=== PATIENT | female | born 1995 | race Hispanic/Latino ===

== ENCOUNTER 2017-07-31 18:12 | Emergency (ER) | payer BC ==
--- NOTE | 2017-07-31 19:10 | ER ---
Nurse's Notes [facility] Name: Roselia Vega Age: 21 yrs Sex: Female : 1995 Arrival Date: 07/31/2017 Time: 18:16 Bed 14 Private MD: Diagnosis: Superficial injury of head;Concussion Presentation: 07/31 18:25 Presenting complaint: Patient states: i had a concussion 2 weeks ago, a 2 L coke bottle tw2 fell on my head form the top shelf, and they told me to come back if had any symptoms, i dont have headaches, but it just throbs on the right side. Transition of care: patient was not received from another setting of care. Onset of symptoms was July 31, 2017. Care prior to arrival: None. 18:25 Acuity: RIANA 3 tw2 18:25 Method Of Arrival: Ambulatory tw2 Triage Assessment: 19:28 Pain: Also complains of nausea. 19:29 Headache History: Denies prior headaches. 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 - Social history:: Smoking status: Patient/guardian denies using tobacco. Screenin:32 Abuse screen: Denies threats or abuse. Denies injuries from another. Nutritional aj1 screening: No deficits noted. Tuberculosis screening: No symptoms or risk factors identified. 19:29 Fall Risk None identified. Assessment: 18:32 General: Appears in no apparent distress. comfortable, Behavior is calm, cooperative, aj1 appropriate for age. Pain: Complains of pain in scalp Pain radiates to neck Pain currently is 7 out of 10 on a pain scale. Quality of pain is described as throbbing, Pain began 2 weeks ago. Neuro: Level of Consciousness is awake, alert, obeys commands, Oriented to person, place, time, situation, Maintenance Scheduler are equal bilaterally Moves all extremities. Full function Gait is steady, Speech is normal, Facial symmetry appears normal, Pupils are PERRLA, Intact Reports headache for the past 2 weeks, states she is taking Tylenol #3, but it isn't helping her pain. Patient has not followed up with her PCP. Cardiovascular: Patient's skin is warm and dry. Respiratory: Airway is patent Respiratory effort is even, unlabored, Respiratory pattern is regular, symmetrical. GI: No signs and/or symptoms were reported involving the gastrointestinal system. : No signs and/or symptoms were reported regarding the genitourinary system. EENT: No signs and/or symptoms were reported regarding the EENT system. Derm: No signs and/or symptoms reported regarding the dermatologic system. Skin is pink, warm \T\ dry. normal. Musculoskeletal: No signs and/or symptoms reported regarding the musculoskeletal system. Circulation, motion, and sensation intact. 19:28 Reassessment: Patient appears in no apparent distress at this time. Patient and/or wh family updated on plan of care and expected duration. Pain level reassessed. Patient is alert, oriented x 3, equal unlabored respirations, skin warm/dry/pink. Patient denies pain at this time. Vital Signs: 18:27 BP 133 / 82; Pulse 85; Resp 17; Temp 98.6(O); Pulse Ox 99% on R/A; Weight 97.52 kg (R); tw2 Height 5 ft. 2 in. (157.48 cm); Pain 8/10; 18:27 Body Mass Index 39.32 (97.52 kg, 157.48 cm) tw2 Rahel Coma Score: 21:27 Eye Response: spontaneous(4). Verbal Response: oriented(5). Motor Response: obeys snw commands(6). Total: 15. ED Course: 18:16 Patient arrived in ED. as 18:17 Triage completed. tw2 18:17 Arm band placed on. tw2 18:32 Susana Bettencourt, RN is Primary Nurse. aj1 18:32 Kareen Corea FNP-C is PHCP. snw 18:32 Chema Wu MD is Attending Physician. snw 18:32 Patient has correct armband on for positive identification. Bed in low position. Call aj1 light in reach. Side rails up X 1. 18:32 No provider procedures requiring assistance completed. aj1 19:30 Patient did not have IV access during this emergency room visit. Administered Medications: No medications were administered Outcome: 19:09 Discharge ordered by . snw 19:29 Discharged to home ambulatory, with friend. 19:29 Condition: good 19:29 Discharge instructions given to patient, friend, Instructed on discharge instructions, follow up and referral plans. medication usage, POC Concussion Demonstrated understanding of instructions, follow-up care, medications, POC Prescriptions given X 1. 19:30 Patient left the ED. Signatures: Susana Bettencourt RN RN aj1 Kareen Corea, ANODIZING LINE OPERATOR-C ANODIZING LINE OPERATOR-Csnw Bety Renee as Addie Feliz RN RN tw2 Betty Ruiz Corrections: (The following items were deleted from the chart) 18:20 18:17 Presenting complaint: Patient states: starting yesterday my throat was really tw2 sore and today my nose is really stuffy tw2 18:20 18:17 Transition of care: patient was not received from another setting of care. tw2 18:20 18:17 Onset of symptoms was July 31, 2017 tw2 18:20 18:17 Care prior to arrival: None. 2 18:20 18:17 Method Of Arrival: Ambulatory tw2 18:20 18:17 Acuity: RIANA 4 tw2 18:20 18:17 BP 135 / 81; Pulse 97bpm; Resp 18bpm; Pulse Ox 100% RA; Temp 98.9F Oral; 81.65 kg tw2 Reported; Height 5 ft. 4 in.; BMI: 30.9; Pain 0/10; tw2 :20 18:17 LMP 07/31/2017 2 18:20 18:18 Home Meds: None; 2
--- NOTE | 2017-07-31 19:10 | EDPHYS ---
Physician Documentation [facility] Name: Roselia Vega Age: 21 yrs Sex: Female : 1995 Arrival Date: 07/31/2017 Time: 18:16 Bed 14 Private MD: ED Physician Chema Wu HPI: 07/31 21:24 This 21 yrs old Female presents to ER via Ambulatory with complaints of snw Headache. 21:24 The patient complains of pain to the right synagogue. The patient describes the headache snw as pounding. Onset: The symptoms/episode began/occurred 2 week(s) ago, and became persistent. Associated signs and symptoms: The patient has no apparent associated signs or symptoms, Pertinent negatives: dizziness, fever, malaise, sinus congestion, sinus tenderness. Severity of symptoms: At its worst the pain was very mild. Headache History: Denies prior headaches. The patient has not experienced similar symptoms in the past. The patient has been recently seen by a physician: with similar presenting complaints, + head injury two weeks ago, CT negative. 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 - Social history:: Smoking status: Patient/guardian denies using tobacco. ROS: 21:23 Constitutional: Negative for fever, chills, and weight loss, Eyes: Negative for injury, snw pain, redness, and discharge, ENT: Negative for injury, pain, and discharge, Neck: Negative for injury, pain, and swelling, Cardiovascular: Negative for chest pain, palpitations, and edema, Respiratory: Negative for shortness of breath, cough, wheezing, and pleuritic chest pain, Abdomen/GI: Negative for abdominal pain, nausea, vomiting, diarrhea, and constipation, Back: Negative for injury and pain, : Negative for injury, bleeding, discharge, and swelling, MS/Extremity: Negative for injury and deformity, Skin: Negative for injury, rash, and discoloration. 21:23 Neuro: Positive for pounding in right parietal area, denies headache, vomiting, fever. Exam: 21:23 Constitutional: This is a well developed, well nourished patient who is awake, alert, snw and in no acute distress. Head/Face: Normocephalic, atraumatic. Eyes: Pupils equal round and reactive to light, extra-ocular motions intact. Lids and lashes normal. Conjunctiva and sclera are non-icteric and not injected. Cornea within normal limits. Periorbital areas with no swelling, redness, or edema. ENT: Nares patent. No nasal discharge, no septal abnormalities noted. Tympanic membranes are normal and external auditory canals are clear. Oropharynx with no redness, swelling, or masses, exudates, or evidence of obstruction, uvula midline. Mucous membranes moist. Neck: Trachea midline, no thyromegaly or masses palpated, and no cervical lymphadenopathy. Supple, full range of motion without nuchal rigidity, or vertebral point tenderness. No Meningismus. Chest/axilla: Normal chest wall appearance and motion. Nontender with no deformity. No lesions are appreciated. Cardiovascular: Regular rate and rhythm with a normal S1 and S2. No gallops, murmurs, or rubs. Normal PMI, no JVD. No pulse deficits. Respiratory: Lungs have equal breath sounds bilaterally, clear to auscultation and percussion. No rales, rhonchi or wheezes noted. No increased work of breathing, no retractions or nasal flaring. Abdomen/GI: Soft, non-tender, with normal bowel sounds. No distension or tympany. No guarding or rebound. No evidence of tenderness throughout. Back: No spinal tenderness. No costovertebral tenderness. Full range of motion. Skin: Warm, dry with normal turgor. Normal color with no rashes, no lesions, and no evidence of cellulitis. MS/ Extremity: Pulses equal, no cyanosis. Neurovascular intact. Full, normal range of motion. Neuro: Awake and alert, GCS 15, oriented to person, place, time, and situation. Cranial nerves II-XII grossly intact. Motor strength 5/5 in all extremities. Sensory grossly intact. Cerebellar exam normal. Normal gait. Psych: Awake, alert, with orientation to person, place and time. Behavior, mood, and affect are within normal limits. Vital Signs: 18:27 BP 133 / 82; Pulse 85; Resp 17; Temp 98.6(O); Pulse Ox 99% on R/A; Weight 97.52 kg (R); tw2 Height 5 ft. 2 in. (157.48 cm); Pain 8/10; 18:27 Body Mass Index 39.32 (97.52 kg, 157.48 cm) tw2 Rahel Coma Score: 21:27 Eye Response: spontaneous(4). Verbal Response: oriented(5). Motor Response: obeys snw commands(6). Total: 15. MDM: 18:32 Patient medically screened. snw 21:27 Data reviewed: vital signs, nurses notes. Data interpreted: Pulse oximetry: on room air snw is 99 %. Interpretation: normal. Counseling: I had a detailed discussion with the patient and/or guardian regarding: the historical points, exam findings, and any diagnostic results supporting the discharge/admit diagnosis, the presence of at least one elevated blood pressure reading (>120/80) during this emergency department visit, the need for outpatient follow up, to return to the emergency department if symptoms worsen or persist or if there are any questions or concerns that arise at home. Special discussion: I have referred the patient to see his PCP for further evaluation of high blood pressure. Based on the history and exam findings, there is no indication for further emergent testing or inpatient evaluation. I discussed with the patient/guardian the need to see the primary care provider for further evaluation of the symptoms. Administered Medications: No medications were administered Disposition: 08/01 07:13 Co-signature as Attending Physician, Chema Wu MD I agree with the assessment and jemma plan of care. Disposition: 07/31/17 19:09 Discharged to Home. Impression: Superficial injury of head, Concussion. - Condition is Stable. - Discharge Instructions: Head Injury, Adult, Post-Concussion Syndrome. - Prescriptions for promethazine 25 mg Oral Tablet - take 1 tablet by ORAL route every 6 hours As needed; 20 tablet. - Medication Reconciliation Form, Thank You Letter, Antibiotic Education, Prescription Opioid Use form. - Follow up: Private Physician; When: 2 - 3 days; Reason: Recheck today's complaints, Continuance of care, Re-evaluation by your physician. Follow up: Emergency Department; When: As needed; Reason: Worsening of condition. Signatures: Chema Wu MD MD cha Therrien, Shelly, TRAILER DRIVER-C TRAILER DRIVER-Csnw Addie Feliz, RN RN tw2 Betty Ruiz Corrections: (The following items were deleted from the chart) 07/31 18:20 18:18 [place] Meds: None;
== END 2017-07-31 19:30 | disposition home or self-care (01) ==
LOC: ER 18:12
DX: S00.90XA Unspecified superficial injury of unspecified part of head, initial encounter (principal); S06.0X9A Concussion with loss of consciousness of unspecified duration, initial encounter; W20.8XXA Other cause of strike by thrown, projected or falling object, initial encounter; Y92.9 Unspecified place or not applicable
CPT/HCPCS: 99282